=== PATIENT | male | born 1955 | race Caucasian/White ===

== ENCOUNTER 2024-12-08 13:10 | Inpatient (IN) | payer MEDICARE ==
[2024-12-08] MEDS: HEPARIN SODIUM,PORCINE (1 ML) 2,500 UNIT in SODIUM CHLORIDE 0.9% 250 ML IRRIGATION ONE (13:49)
[2024-12-08] MEDS: HEPARIN SODIUM,PORCINE 10,000 UNIT in SODIUM CHLORIDE 0.9% 1,000 ML IRRIGATION ONE (13:50)
[2024-12-08] MEDS: IV FLUID CONTINUATION 1,000 ML IV ONE (14:02)
[2024-12-08] MEDS: fentaNYL (PF) 50 MCG/ML 2 ML AMP IVP ONE (14:21)
[2024-12-08] MEDS: LIDOCAINE 2% (PF) 20 MG/ML 10 ML AMP SQ ONE (14:26)
[2024-12-08] MEDS: VERAPAMIL SYRINGE (5 MG/10 ML) INTRAARTER ONE (14:27)
[2024-12-08] MEDS: PRASUGREL 10 MG TAB PO ONE (14:30)
[2024-12-08] MEDS: NITROGLYCERIN 1000MCG/10ML SYRINGE INTRAARTER ONE (14:40)
[2024-12-08] MEDS: IOPAMIDOL-370 100ML BTL INJ ONE ×2 (14:44)
[2024-12-08] MEDS ORDERED: ZOLPIDEM 5 MG TAB PO PRN (15:07)
[2024-12-08] MEDS ORDERED: NITROGLYCERIN SL TABS 0.4 MG TAB SUBLINGUAL PRN (15:07)
[2024-12-08] MEDS ORDERED: MAG HYDROX/AL HYDROX/SIMETH 30 ML CUP PO PRN (15:07)
[2024-12-08] MEDS ORDERED: RX INFO: IV CONTRAST WAS GIVEN 1 EACH MISC MISCELLANE PRN (15:07)
[2024-12-08] MEDS ORDERED: ATROPINE SULFATE 0.1 MG/ML 10ML SYRINGE IV PRN (15:07)
--- NOTE | 2024-12-08 15:13 | P.CARDCATH ---
Date of Procedure: 12/08/24 Description of Procedure: PERCUTANEOUS TRANSLUMINAL CORONARY ANGIOPLASTY CLINICAL INFORMATION: The patient is a 69-year-old male with known history of hypertension, chronic tobacco use who presented to [facility] with an episode of chest discomfort and evidence of non-STEMI, he underwent coronary angiography by Dr. Lujan and was found to have critical stenosis involving the mid left circumflex. Recommendations were made regarding angioplasty and stenting. The procedure as well as the risks and the complications were discussed with the patient who was in full understanding and agreement. PROCEDURE: The patient was brought to the [facility] in the fasting semisedated state and using guidewire exchange technique the sheath in the right radial artery was exchanged to a new 6 Cymraes sheath. A 6 Cym[employer]es CLS 3.5 guiding catheter was introduced into the system. After cannulating the left main, a 0.014 BMW J-wire was advanced across the lesion and positioned distally. Following that a 2.25 x 12 mm trek balloon was advanced and inflated at 8 atmosphere. After removing the balloon a [employer] eye IVUS catheter was introduced and images were obtained and revealed the distal lumen measuring close to 3.5 mm in diameter, mild calcification and diffuse disease to the ostium. Following that a 3.25 x 18 mm Xience harish point stent was deployed. It was dilated at 16 raquel. After removing the balloon repeat IVUS imaging was obtained and revealed under deployment in the mid and proximal segment of the s tent. A 3.5 x 12 mm NC trek balloon was advanced and 2 inflations at 10 raquel were done. After the last inflation, after appropriate wait, the balloon and the guidewire were withdrawn back into the guiding catheter. Images were obtained and repeated. Those images reveal stable successful stenting. At that point, the guiding catheter, the balloon, and guidewire were removed. The sheath was removed. Hemostasis was obtained with deployment of a TR band. There were no immediate complications. The patient was returned to the room in stable condition. Of note, the patient received 1000 units of heparin as well as prasugrel. His ACT was followed. There was no immediate complications. He had chest discomfort that resolved at the end of the procedure RESULTS: Successful stenting of the mid left circumflex with reduction of stenosis from 99% to less than 5% with IVUS imaging and KIRK-3 flow. There was disease proximal to the stent to the ostium of 50 to 60% and the decision was made to treated medically. RECOMMENDATIONS: The patient will continue on aspirin and prasugrel for 1 year without any interruption in addition to aggressive coronary risks modification, attempting to maintain LDL below 70 mg/dL. The importance of smoking cessation was discussed with the patient and he will be referred to [facility]. The findings and recommendations were discussed with the patient and the family, they are in full understanding and agreement. Duration of sedation: 31 minutes
[2024-12-08] MEDS: IPRATROPIUM-ALBUTEROL 3 ML NEB INHALATION STA (15:14)
[2024-12-08] MEDS: guaiFENesin 600 MG TABLET.ER PO PRN (19:55)
[2024-12-08] MEDS: METOPROLOL TARTRATE 25 MG TAB PO SCH (19:55)
[2024-12-08] MEDS: ATORVASTATIN 80 MG TAB PO SCH (19:55)
[2024-12-08] MEDS: IPRATROPIUM-ALBUTEROL 3 ML NEB INHALATION PRN (21:55)
[2024-12-08] MEDS: SYMBICORT 160-4.5 MCG INHALER INHALATION SCH (22:01)
[2024-12-08] MEDS ORDERED: IPRATROPIUM-ALBUTEROL 3 ML NEB INHALATION PRN (22:03)
[2024-12-09] MEDS: NON FORMULARY DRUG (Albuterol Inhaler 90 MCG Puff) INHALATION SCH (03:04)
[2024-12-09 07:28] LABS: African American GFR (CKD) 77 (>60 ml/min/1.73 sqM); Anion Gap 7 mmol/L; Blood Urea Nitrogen 31 mg/dL (9-20); Calcium 9.4 mg/dL (8.4-10.2); Carbon Dioxide 29 mmol/L (22-30); Chloride 104 mmol/L (98-107); Glucose 118 mg/dL (74-99); Non-African American GFR(CKD) 67 (>60 ml/min/1.73 sqM); Potassium 4.9 mmol/L (3.5-5.1); Sodium 140 mmol/L (137-145)
[2024-12-09] MEDS: IPRATROPIUM-ALBUTEROL 3 ML NEB INHALATION SCH (08:46)
[2024-12-09] MEDS: ENOXAPARIN 40 MG/0.4 ML SYRINGE SQ SCH (09:22)
[2024-12-09] MEDS: ASPIRIN 81 MG PO SCH (09:23)
[2024-12-09] MEDS: CHOLECALCIFEROL 125 MCG (5000 IU) TABLET PO SCH (09:23)
[2024-12-09] MEDS: lisinopriL 5 MG TAB PO SCH (09:23)
[2024-12-09] MEDS: ASCORBIC ACID 500 MG TAB PO SCH (09:23)
[2024-12-09] MEDS: PRASUGREL 10 MG TAB PO SCH (10:42)
[2024-12-09 11:12] VITALS: BP 151/73; RESP 18; TEMP 98.2
[2024-12-09] MEDS: METOPROLOL TARTRATE 25 MG TAB PO STA (11:33)
--- NOTE | 2024-12-09 12:07 | P.PN ---
Subjective Progress Note Date: 12/09/24 This is a 69-year-old male with past medical history of hypertension, chronic tobacco use and dependence. He initially presented to [facility] with episode of chest pain and was diagnosed with NSTEMI. He underwent cardiac catheterization with Dr. Lujan and was found to have a critical stenosis involving the mid left circumflex, mild to moderate nonobstructive disease in the small caliber RCA, normal LVEDP. Patient was transferred to [facility] and underwent successful stenting of the mid left circumflex with Dr. Thompson performed 12/08. Patient has been started on patient is seen today in follow-up. He denies chest pain. He states he continues to have shortness of breath secondary to his COPD. He also states that his heart rate is jumping from 80 up to 115 120 with activity. This apparently is not new for the patient. He is on a metoprolol tartrate 25 mg twice daily. BUN 31, creatinine 1.12. Echocardiogram performed at [facility] revealed EF of 50 to 55%. No pericardial effusion. CTA of the chest done at [facility] was negative for PE. Physical examination: Gen: This is a 69-year-old male in no acute distress VS: reviewed HEENT: Head is atraumatic, normocephalic. Pupils equal, round. Sclerae is anicteric. NECK: Supple. No JVD. LUNGS: Clear to auscultation. No wheezes or rhonchi. No intercostal retractions. HEART: Regular rate and rhythm. No murmur. ABDOMEN: Soft No tenderness. EXTREMITIES: No pedal edema. No calf tenderness. NEUROLOGICAL: Patient is awake, alert and oriented x3. Assessment: NSTEMI Hypertension COPD Chronic tobacco use and dependence Plan: Continue patient on aspirin 81 mg daily, Effient 10 mg daily Continue patient on atorvastatin 80 mg at bedtime, lisinopril 5 mg twice daily, Lopressor 25 mg increased frequency to 3 times daily. Patient is cleared for discharge from cardiology perspective and may follow-up in the office with Dr. Castaneda in 1 week. Nurse practitioner note has been reviewed, I agree with documented findings and plan of care. Patient was seen and examined. Objective - Vital Signs Vital signs: Vital Signs Temp 97.8 F 12/09/24 07:49 Pulse 94 12/09/24 09:19 Resp 20 12/09/24 08:14 BP 160/74 12/09/24 09:19 Pulse Ox 94 L 12/09/24 09:02 FiO2 Intake & Output 12/08/24 12/09/24 12/09/24 18:59 06:59 18:59 Intake Total 352 Balance 352 Weight 72.2 kg 73.4 kg Intake: IV 352 Other: Voiding Method Toilet Urinal # Voids 2 - Labs CBC & Chem 7: 12/09/24 06:32 Labs: Abnormal Lab Results - Last 24 Hours (Table) 12/09/24 Range/Units 06:32 BUN 31 H (9-20) mg/dL Glucose 118 H (74-99) mg/dL
[2024-12-09 12:54] VITALS: PULSE 70
--- NOTE | 2024-12-09 14:24 | P.HPIM ---
History of Present Illness H&P Date: 12/09/24 History of present illness; Patient is a 69-year-old male with known history of hypertension, chronic tobacco use who presented to [facility] with an episode of chest discomfort and evidence of non-STEMI, he underwent coronary angiography by Dr. Lujan and was found to have critical stenosis involving the mid left circumflex. Recommendations were made regarding angioplasty and stenting. He denying chest pain or shortness of breath at this time. No other symptoms. Spoke with the ER physician, patient admission was accepted by internal medicine service for treatment. REVIEW OF SYSTEMS: Pertinent positives and negatives noted in HPI. PHYSICAL EXAMINATION: Vitals reviewed GENERAL: Resting comfortably in bed. On 3 L of oxygen nasal cannula, at baseline EYES: PERRL, no scleral injection or icterus. No vision loss HENT: Normocephalic, atraumatic, hearing grossly intact, moist mucous membranes NECK: No tracheal deviation, full range of motion. CARDIOVASCULAR: S1 and S2 present. No murmurs, rubs, or gallops. PULMONARY: Chest is clear to auscultation, no wheezing, rhonchi, or crackles. ABDOMEN: Soft, nontender, nondistended. No palpable organomegaly. MUSCULOSKELETAL: No apparent joint swelling and deformities. EXTREMITIES: No apparent cyanosis, clubbing. No pedal edema. NEUROLOGICAL: Alert and oriented. Gross neurological examination with no apparent focal deficits. SKIN: No apparent rashes. OBJECTIVE FINDINGS: Labs significant for BUN 31, glucose 118 Coronary angiography with critical stenosis involving the mid left circumflex. EKG independently interpreted showed sinus rhythm heart rate of 81, QTc 35, no ST segment elevation or depression seen, no T-wave inversions seen. Assessment and Plan: # NSTEMI, S/P cardiac catheterization with angioplasty and stenting 12/08/2024 - Continue on aspirin and prasugrel for 1 year Continue Metoprolol 25 mg twice daily and Lipitor 80 mg daily Cardiac catheterization completed Counseled patient on smoking cessation Cardiology following Chronic Medical Conditions #COPD/asthma #Hypertension Resume home medication DVT ppx: Subq Lovenox 40 meq daily Code status: No code Anticipated discharge place: Home Anticipated discharge time: today Dr. Coleman seen patient with resident, present during exam, and agreed with f saroj. Dictation was produced using [employer] dictation software. Please excuse any grammatical, word or spelling errors. Past Medical History Past Medical History: Asthma, COPD, Hypertension History of Any Multi-Drug Resistant Organisms: None Reported Past Surgical History: Heart Catheterization With Stent, Orthopedic Surgery Additional Past Surgical History / Comment(s): "plate in neck" Past Anesthesia/Blood Transfusion Reactions: No Reported Reaction Date of Last Stent Placement:: 12/08/24 Smoking Status: Current every day smoker Past Alcohol Use History: None Reported Medications and Allergies Home Medications Medication Instructions Recorded Confirmed Type Albuterol Inhaler [Ventolin Hfa 2 puff INHALATION RT-Q6H PRN 12/08/24 12/08/24 History Inhaler] Ascorbic Acid [Vitamin C] 500 mg PO DAILY 12/08/24 12/08/24 History Cholecalciferol [Vitamin D3 (125 125 mcg PO DAILY 12/08/24 12/08/24 History Mcg = 5000 Iu)] Fluticasone Propion/Salmeterol 2 puff INHALATION RT-BID 12/08/24 12/08/24 History [Advair Hfa 115-21 Mcg Inhaler] Ipratropium-Albuterol Nebulize 3 ml INHALATION RT-Q6H PRN 12/08/24 12/08/24 History [Duoneb 0.5 mg-3 mg/3 ml Soln] Magnesium (Unknown Strength) 1 dose PO DAILY 12/08/24 12/08/24 History Potassium Gluconate 99 mg PO DAILY 12/08/24 12/08/24 History Selenium 50 mcg PO DAILY 12/08/24 12/08/24 History Zinc Gluconate [Zinc] 50 mg PO DAILY 12/08/24 12/08/24 History Aspirin 81 mg PO DAILY #30 tab 12/09/24 Rx Atorvastatin [Lipitor] 80 mg PO HS #90 tab 12/09/24 Rx Metoprolol Tartrate [Lopressor] 25 mg PO TID tab 12/09/24 Rx Prasugrel [Effient] 10 mg PO DAILY #90 tab 12/09/24 Rx lisinopriL [Zestril] 5 mg PO BID tab 12/09/24 Rx Allergies Allergy/AdvReac Type Severity Reaction Status Date / Time No Known Allergies Allergy Verified 12/08/24 18:41 Physical Exam Vitals: Vital Signs Temp Pulse Pulse Pulse Resp BP Pulse Ox 12/09/24 08:14 20 12/09/24 07:49 97.8 F 84 20 170/54 99 12/09/24 04:00 98.2 F 95 19 150/79 100 12/08/24 23:39 98.1 F 96 19 161/73 98 12/08/24 22:09 85 12/08/24 22:01 85 12/08/24 20:00 97.8 F 97 19 164/75 98 12/08/24 16:45 98.3 F 90 18 158/64 95 12/08/24 16:08 77 16 131/65 98 12/08/24 15:46 78 18 128/59 97 12/08/24 15:23 82 76 16 127/72 98 12/08/24 15:16 98 12/08/24 15:15 76 12/08/24 15:08 82 18 131/69 96 Intake and Output 12/08/24 12/09/24 12/09/24 22:59 06:59 14:59 Intake Total 150 Balance 150 Intake: IV 150 Other: Voiding Method Toilet Toilet Urinal Urinal # Voids 2 Weight 72.2 kg 73.4 kg Results CBC & Chem 7: 12/09/24 06:32 Labs: Abnormal Lab Results - Last 24 Hours (Table) 12/09/24 Range/Units 06:32 BUN 31 H (9-20) mg/dL Glucose 118 H (74-99) mg/dL Thrombosis Risk Factor Assmnt - Choose All That Apply Any of the Below Risk Factors Present?: Yes Each Factor Represents 1 point: Obesity (BMI >25) Other Risk Factors: Yes Each Risk Factor Represents 2 Points: Age 61-74 years Other congenital or acquired thrombophilia - If yes, enter type in comment: No Thrombosis Risk Factor Assessment Total Risk Factor Score: 3 Thrombosis Risk Factor Assessment Level: Moderate Risk
--- NOTE | 2024-12-09 14:29 | P.DS ---
Providers Date of admission: 12/08/24 13:49 Expected date of discharge: 12/09/24 Attending physician: Cem Camejo Consults: 12/08/24 15:08 Consult Physician Routine Consulting Provider: [facility] Consult Reason/Comments: Post Interventional Patient Do you want consulting provider notified?: Already Contacted Primary care physician: Carl Willis [facility] Hospital Course: Discharge diagnoses; # NSTEMI, S/P cardiac catheterization with angioplasty and stenting 12/08/2024 #COPD/asthma #Hypertension Hospital course; History of present illness; Patient is a 69-year-old male with known history of hypertension, chronic tobacco use who presented to [facility] with an episode of chest discomfort and evidence of non-STEMI, he underwent coronary angiography by Dr. Lujan and was found to have critical stenosis involving the mid left circumflex. Recommendations were made regarding angioplasty and stenting. He denying chest pain or shortness of breath at this time. No other symptoms. Patient was transferred to [facility] and underwent successful stenting of the mid left circumflex with Dr. Thompson performed 12/08. Echocardiogram performed at [facility] revealed EF of 50 to 55%. No pericardial effusion. Patient discharged home in stable condition. Continue patient on aspirin 81 mg daily, Effient 10 mg daily. Continue patient on atorvastatin 80 mg at bedtime, lisinopril 5 mg twice daily, Lopressor 25 mg increased frequency to 3 times daily. He may follow-up in the office with Dr. Castaneda in 1 week, and follow-up with PCP. PHYSICAL EXAMINATION: Vitals reviewed GENERAL: Resting comfortably in bed. On 3 L of oxygen nasal cannula, at baseline CARDIOVASCULAR: S1 and S2 present. No murmurs, rubs, or gallops. PULMONARY: Chest is clear to auscultation, no wheezing, rhonchi, or crackles. ABDOMEN: Soft, nontender, nondistended. No palpable organomegaly. MUSCULOSKELETAL: No apparent joint swelling and deformities. EXTREMITIES: No apparent cyanosis, clubbing. No pedal edema. NEUROLOGICAL: Alert and oriented. Gross neurological examination with no apparent focal deficits. SKIN: No apparent rashes. Dr. Coleman seen patient with resident, present during exam, and agreed with findings. Dictation was produced using [employer] dictation software. please excuse any grammatical, word or spelling errors. Patient Condition at Discharge: Stable Plan - Discharge Summary New Discharge Prescriptions: New Prasugrel [Effient] 10 mg PO DAILY #90 tab Atorvastatin [Lipitor] 80 mg PO HS #90 tab Metoprolol Tartrate [Lopressor] 25 mg PO TID tab Aspirin 81 mg PO DAILY #30 tab lisinopriL [Zestril] 5 mg PO BID tab Continue Ipratropium-Albuterol Nebulize [Duoneb 0.5 mg-3 mg/3 ml Soln] 3 ml INHALATION RT-Q6H PRN PRN Reason: Shortness Of Breath Fluticasone Propion/Salmeterol [Advair Hfa 115-21 Mcg Inhaler] 2 puff I NHALATION RT-BID Zinc Gluconate [Zinc] 50 mg PO DAILY Selenium 50 mcg PO DAILY Ascorbic Acid [Vitamin C] 500 mg PO DAILY Albuterol Inhaler [Ventolin Hfa Inhaler] 2 puff INHALATION RT-Q6H PRN PRN Reason: Shortness Of Breath Potassium Gluconate 99 mg PO DAILY Magnesium (Unknown Strength) 1 dose PO DAILY Cholecalciferol [Vitamin D3 (125 Mcg = 5000 Iu)] 125 mcg PO DAILY Discontinued Metoprolol Tartrate [Lopressor] 25 mg PO BID lisinopriL [Zestril] 5 mg PO DAILY Discharge Medication List Albuterol Inhaler [Ventolin Hfa Inhaler] 2 puff INHALATION RT-Q6H PRN 12/08/24 [History] Ascorbic Acid [Vitamin C] 500 mg PO DAILY 12/08/24 [History] Cholecalciferol [Vitamin D3 (125 Mcg = 5000 Iu)] 125 mcg PO DAILY 12/08/24 [Hi story] Fluticasone Propion/Salmeterol [Advair Hfa 115-21 Mcg Inhaler] 2 puff INHALATION RT-BID 12/08/24 [History] Ipratropium-Albuterol Nebulize [Duoneb 0.5 mg-3 mg/3 ml Soln] 3 ml INHALATION RT-Q6H PRN 12/08/24 [History] Magnesium (Unknown Strength) 1 dose PO DAILY 12/08/24 [History] Potassium Gluconate 99 mg PO DAILY 12/08/24 [History] Selenium 50 mcg PO DAILY 12/08/24 [History] Zinc Gluconate [Zinc] 50 mg PO DAILY 12/08/24 [History] Aspirin 81 mg PO DAILY #30 tab 12/09/24 [Rx] Atorvastatin [Lipitor] 80 mg PO HS #90 tab 12/09/24 [Rx] Metoprolol Tartrate [Lopressor] 25 mg PO TID tab 12/09/24 [Rx] Prasugrel [Effient] 10 mg PO DAILY #90 tab 12/09/24 [Rx] lisinopriL [Zestril] 5 mg PO BID tab 12/09/24 [Rx] Follow up Appointment(s)/Referral(s): Ernesto Castaneda MD [STAFF PHYSICIAN] - 1 Week (Patient to make appointment ) Patient Instructions/Handouts: Heart Attack (DC) Activity/Diet/Wound Care/Special Instructions: Continue patient on aspirin 81 mg daily, Effient 10 mg daily Continue patient on atorvastatin 80 mg at bedtime, lisinopril 5 mg twice daily, Lopressor 25 mg increased frequency to 3 times daily. Follow-up in the office with Dr. Castaneda in 1 week. Discharge Disposition: HOME SELF-CARE
[2024-12-09 14:43] VITALS: BMI 26.1
[2024-12-09] MEDS ORDERED: METOPROLOL TARTRATE 50 MG TAB PO SCH (16:00)
[2024-12-09] MEDS ORDERED: METOPROLOL TARTRATE 25 MG TAB PO SCH (16:00)
[2024-12-09] MEDS ORDERED: lisinopriL 5 MG TAB PO SCH (21:00)
== END 2024-12-09 15:29 | disposition home or self-care (01) | DRG 322 ==
LOC: 3SCARD 13:49
PROVIDERS: ADMIT Internal Medicine; ATTEND Internal Medicine
PROC: 027034Z Dilation of Coronary Artery, One Artery with Drug-eluting Intraluminal Device, Percutaneous Approach (ICD-10-PCS; principal; 2024-12-08 14:00)
PROC: B240ZZ3 Ultrasonography of Single Coronary Artery, Intravascular (ICD-10-PCS; 2024-12-08 14:00)
DX: I21.4 Non-ST elevation (NSTEMI) myocardial infarction (principal); F17.210 Nicotine dependence, cigarettes, uncomplicated; J44.89 Other specified chronic obstructive pulmonary disease; I10 Essential (primary) hypertension; Z71.6 Tobacco abuse counseling; Z79.02 Long term (current) use of antithrombotics/antiplatelets; Z79.82 Long term (current) use of aspirin
CPT/HCPCS: 80048; 92978; 94640; 94760